=== PATIENT | male | born 1945 | race Caucasian/White ===

== ENCOUNTER 2022-01-11 08:41 | Emergency (ER) | payer MEDICARE, BC ==
[2022-01-11] MEDS ORDERED: Sodium Chloride 0.9% 10 ML Syringe FLUSH PRN (08:50)
[2022-01-11 13:26] VITALS: BP 142/76; PULSE 68
== END 2022-01-11 11:12 | disposition home or self-care (01) ==
LOC: JD.ED 08:41
DX: S00.81XA Abrasion of other part of head, initial encounter (principal); R56.9 Unspecified convulsions; Z87.891 Personal history of nicotine dependence; V89.2XXA Person injured in unspecified motor-vehicle accident, traffic, initial encounter; Y92.410 Unspecified street and highway as the place of occurrence of the external cause
CPT/HCPCS: 36415; 70450; 71045; 80053; 83690; 84484; 85025; 85610; 85730; 93005; 99285; J3490